=== PATIENT | female | born 1980 | race Two or more races ===

== ENCOUNTER 2024-07-03 01:39 | Emergency (ER) | payer MEDICAID, SELFPAY ==
[2024-07-03 01:43] VITALS: BMI 32.9
[2024-07-03 01:44] VITALS: BP 209/132; PULSE 97; RESP 19; TEMP 36.8; O2SAT 100
--- NOTE | 2024-07-03 01:57 | EDNOTE_ITS ---
ED Medical Clearance RME/HPI General Chief complaint: Medical Clearance Stated complaint: MEDICAL CLEARANCE Arrival date/time: 07/03/24 01:39 RME / HPI RME / HPI Narrative: This section includes all my notes and documentations, including HPI, PE, and ED course. Porfirio Jimenez MD HPI: 44yo female ZEE MARO presents to the ED for a medical clearance. Patient was brought in due to her blood pressure being too high. She endorses having a gener alized headache. She denies any dizziness, weakness, chest pain, shortness of breath, N/V or any other associated symptoms. Patient is not on any medications. No other complaints reported. ROS: All negative except as documented in HPI. Physical Exam: General: Alert and oriented. No acute distress when remaining still. High BP noted. Eyes: Conjunctivae and lids clear. PERRL. EOMI. ENT: No nasal congestion. Neck: Supple. Heart: RRR. Lungs: No respiratory distress. Good air movement. No rhonchi, wheezing, rales. Abdomen: Soft and nontender. Legs: No clubbing, cyanosis, edema. Skin: Warm and dry. Neuro: Alert and oriented X 3. Cranial nerves II to XII grossly normal. No peripheral motor deficits. I reviewed all diagnostic test results. My interpretation of the EKG is sinus rhythm with no acute ST?T changes. My review of the head CT report is no acute findings. Blood tests and urine tests At this point, diagnoses include hypertensive urgency. Treatment here included Clonidine and Metoprolol. Significant improvement noted. Based on my best medical judgment, made decision to medically clear the patient for [facility] and no further evaluation or treatment indicated at this time. Patient understands and agrees to the discharge instructions customized and printed, see below. Discharge Instructions from Dr. Jimenez printed for you: 1. Fortunately, there is no serious organ damage from your severely high BP. Such as stroke or heart attack. 2. To prevent heart attacks and strokes and to live longer, take metoprolol ER 100 mg every morning and every night. 3. See a private doctor on 07/05/2024 or whenever you are released from [facility] for recheck and further care. Ask to help you stay healthy, with good management of your BP, helping you to prevent future heart attacks and strokes, and with regular physical exam and health maintenance. 4. Seek immediate medical care with worsening or with any concerns. Porfirio Jimenez MD Related Information Previous Rx's ?Medication ?Instructions ?Recorded hydralazine 10 mg tablet 10 mg PO BID #30 tabs metoprolol succinate 100 mg 100 mg PO BID #60 tabs tablet,extended release 24 hr metoprolol succinate 100 mg 100 mg PO BID #60 tabs tablet,extended release 24 hr Allergies Allergy/AdvReac Type Severity Reaction Status Date / Time No Known Allergies Allergy Verified 07/03/24 02:38 Review of Systems Review of Systems Systems Reviewed: All systems reviewed, normal except as documented Past Medical History Social History SMOKING STATUS: Never smoker ED Exam Narrative Physical exam: As noted in HPI. Course Quality Measures none Orders Category Date Time Status EKG (ED ONLY) *Do not use* NOW Care 07/03/24 01:[address] head/brain wo con Stat Exams 07/03/24 01:58 Completed EKG (ED Only) Stat Exams 07/03/24 01:58 Draft Metoprolol Tartrate [Lopressor] Med 07/03/24 04:15 Discontinued 25 mg PO X1 ONE Metoprolol Tartrate [Lopressor] Med 07/03/24 01:57 Discontinued 50 mg PO X1 ONE cloNIDine HCL [Catapres] Med 07/03/24 04:56 Discontinued 0.1 mg PO X1 ONE cloNIDine HCL [Catapres] Med 07/03/24 04:15 Discontinued 0.2 mg PO X1 ONE cloNIDine HCL [Catapres] Med 07/03/24 01:57 Discontinued 0.3 mg PO X1 ONE Vital Signs Vital signs: Vital Signs Temperature 98.2 F 07/03/24 01:44 Pulse Rate 97 07/03/24 01:44 Respiratory Rate 19 07/03/24 01:44 Blood Pressure 209/132 H 07/03/24 01:44 Pulse Oximetry (%) 100 07/03/24 01:44 Oxygen Delivery Method Room Air 07/03/24 01:44 Medical Clearance MDM Narrative MDM Narrative:: Scribe Attestation: 07/03/24 - Marybeth Du am scribing for and in the presence of Dr. Jimenez. Patient data External records reviewed:: [facility] previous records (Per chart review, patient was seen here on 08/01/23 for HTN.) Clinical information provided by:: patient Social determinants that could affect healthcare access:: none Patient has the following chronic illnesses:: none How is presenting disease/condition affected by chronic disease/condition?: no chronic disease Evaluation data The following diagnostics were reviewed and interpreted by me:: lab results, radiology exam(s) and EKG tracing(s) (My interpretation of the EKG is: Sinus rhythm (85 bpm) with nonspecific ST-T changes. Porfirio Jimenez MD) Lab and/or radiology exams considered but not ordered:: none Interpretation Summary: Normal diagnostics Medications / Prescriptions Medications or Prescriptions considered but not ordered:: none Medication administrations:: Medication Administration History Discontinued Medications Clonidine (Clonidine Hcl 0.1 Mg Tablet) 0.3 mg PO X1 ONE Stop: 07/03/24 01:58 Last Admin: 07/03/24 02:51 Dose: 0.3 mg Documented By: DANDY Clonidine (Clonidine Hcl 0.1 Mg Tablet) 0.2 mg PO X1 ONE Stop: 07/03/24 04:16 Last Admin: 07/03/24 05:19 Dose: Not Given Documented By: DANDY Non-Admin Reason: Discontinued Clonidine (Clonidine Hcl 0.1 Mg Tablet) 0.1 mg PO X1 ONE Stop: 07/03/24 04:57 Last Admin: 07/03/24 05:13 Dose: 0.1 mg Documented By: DANDY Metoprolol Tartrate (Metoprolol Tartrate 25 Mg Tablet) 50 mg PO X1 ONE Stop: 07/03/24 01:58 Last Admin: 07/03/24 02:51 Dose: 50 mg Documented By: DANDY Metoprolol Tartrate (Metoprolol Tartrate 25 Mg Tablet) 25 mg PO X1 ONE Stop: 07/03/24 04:16 Last Admin: 07/03/24 05:19 Dose: Not Given Documented By: DANDY Non-Admin Reason: Discontinued Clonidine, Metoprolol Consultations Consultation(s) initiated? (list below): No Diagnosis Medical Clearance Differential Diagnosis: other (CVA, brain tumor, hypertensive urgency, hypertensive urgency, SC) Most likely diagnosis given after review of the tests above:: Hypertensive urgency Admission Indicated Admission indicated?: not indicated Explain why admission is indicated or not indicated:: With significant improvement, there was no indication for admission. Admission Request Was there a request for admission?: No Disposition Plan Disposition Plan: Discharge Discharge Attestation Discharge Attestation: The patient and all family members were given an opportunity to ask questions and understood the discharge instructions. Discharge instructions specifically effects, indications for sooner follow up or return to the emergency department, and the expected course of current diagnosis. Patient condition: Stable Discharge Plan Plan Patient Disposition: Care Home/Court/Law Prescriptions/Referrals Prescriptions/Med Rec: New metoprolol succinate 100 mg tablet extended release 24 hr 100 mg PO BID Qty: 60 0RF metoprolol succinate 100 mg tablet extended release 24 hr 100 mg PO BID Qty: 60 0RF No Action hydralazine 10 mg tablet 10 mg PO BID Qty: 30 0RF Referrals: No Primary/Family,Physician [Primary Care Provider] - In 1 week Problem List Clinical Impression: Hypertension Patient/Caregiver Discharge Instructions Discharge Activity: activity as tolerated Education Materials: ED Hypertension, New (Begin Treatment) Additional Instructions: Discharge Instructions from Dr. Jimenez printed for you: 1. Fortunately, there is no serious organ damage from your severely high BP. Such as stroke or heart attack. 2. To prevent heart attacks and strokes and to live longer, take metoprolol ER 100 mg every morning and every night. 3. See a private doctor on 07/05/2024 or whenever you are released from [facility] for recheck and further care. Ask to help you stay healthy, with good management of your BP, helping you to prevent future heart attacks and strokes, and with regular physical exam and health maintenance. 4. Seek immediate medical care with worsening or with any concerns. Print Language: Romansh
--- NOTE | 2024-07-03 01:58 | EKG_ITS ---
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
--- NOTE | 2024-07-03 01:58 | XR_ITS ---
Examination: CT brain head without contrast. 2-D sagittal coronal reconstructions Date and time of exam:July 03, 2024 at 0306 hours INDICATIONS: Hypertension with headache today CTDI: vol (mGy):49.8 DLP: (mGycm):959 Technique: Multiple CT axial sections of the brain have been obtained, 5 mm slice thickness. Contrast has not been administered. 2-D sagittal, coronal reconstructions have been obtained Low dose protocols were performed. One or more of the following dose reduction techniques were used; automated exposure control, adjustment of the mA and/or KV according to patient size, use of iterative reconstruction technique. Findings: No significant ventricular enlargement. Intra-axial or extra-axial hemorrhage density is not seen. No mass effect or midline shift Basal cisterns are not remarkable. Fourth ventricle is midline. Cranial vault intact. Impression: Negative for acute hemorrhage, mass effect or midline shift
[2024-07-03 02:41] VITALS: BP 213/120; PULSE 94; RESP 18; O2SAT 97
[2024-07-03 02:51] VITALS: BP 213/120; PULSE 94
[2024-07-03] MEDS: METOPROLOL TARTRATE 25 MG TABLET 50 MG PO (02:51)
[2024-07-03] MEDS: cloNIDine HCL 0.1 MG TABLET 0.3 MG PO (02:51)
--- NOTE | 2024-07-03 03:50 | PRELIM_ITS ---
CT scan of the head without intravenous contrast (axial sections with sagittal and coronal reformats). July 03, 2024 0306 hours Clinical History: High BP and headache Comparison: No prior study is available for comparison. Findings: There is no evidence of intracranial hemorrhage, mass effect or midline shift. The ventricles and CSF spaces are unremarkable. The calvarium is unremarkable. The mastoid air cells and the visualized paranasal sinuses are clear. Impression: No evidence of intracranial hemorrhage, mass effect or midline shift. Report Electronically Signed By: Adam Peñaloza 07/03/2024 3:50:07 AM [EST]
[2024-07-03 04:08] VITALS: BP 178/97; PULSE 71; RESP 16; O2SAT 98
[2024-07-03 04:56] VITALS: BP 156/95; PULSE 69; RESP 16; O2SAT 98
[2024-07-03 05:13] VITALS: BP 149/95; PULSE 78
[2024-07-03] MEDS: cloNIDine HCL 0.1 MG TABLET PO (05:13)
== END 2024-07-03 05:20 ==
PROVIDERS: Emergency Provider Emergency Medicine
DX: Z02.89 Encounter for other administrative examinations (principal); I10 Essential (primary) hypertension; R51.9 Headache, unspecified
CPT/HCPCS: 70450; 93005; 99284; A9270